=== PATIENT | male | born 1975 | race Caucasian/White ===

== ENCOUNTER 2023-01-23 17:29 | Emergency (ER) | payer OTHER ==
--- NOTE | 2023-01-23 17:36 | ERPHSYRPT ---
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 10 years ago, patient had a myocardial infarction. The symptoms today are different. He has no anterior chest pain and he has no left arm pain today. Patient was feeling fine when he got up and feels fine now but his vague symptoms that were present during his myocardial infarction in the past prompted him to come to the emergency room for further evaluation. Patient has a history of elevated cholesterol, hypertension, type 2 diabetes. He has no cough. He is not short of breath. He has no chest pain. Patient's orthodontic technician assistant is Dr. Celaya out of [facility] in [facility]. Patient is a smoker of cigarettes. 1 pack lasts 2 to 3 days per his report Timing/Duration: today Activities at Onset: none Quality: aching (Between his scapulae. There are no symptoms of chest pain) Severity of Pain-Max: mild Severity of Pain-Current: none Modifying Factors: Improves With: nothing Associated Symptoms: denies symptoms Prior Chest Pain/Cardiac Workup: cardiac cath, heart attack Nitro Today/Relief: no nitro taken today Aspirin Treatment Today: 81 mg x 4, provided by ED Allergies/Adverse Reactions: Sulfa (Sulfonamide Antibiotics) Allergy (Verified 01/23/23 17:30) Home Medications: Atorvastatin Calcium [Lipitor 20MG Tablet] 20 mg PO DAILY 01/23/23 [History] Clopidogrel Bisulfate [PLAVIX Tablet] 75 mg PO DAILY 01/23/23 [History] Empagliflozin [Jardiance] 10 mg PO DAILY 01/23/23 [History] Fenofibrate 40 mg PO DAILY 01/23/23 [History] Lisinopril 10 mg [Zestril 10 MG] 10 mg PO DAILY 01/23/23 [History] Metoprolol Succinate 50 mg [Toprol Xl 50 MG] 50 mg PO DAILY 01/23/23 [History] Sitagliptin Phosphate 50 MG [Januvia 50 MG] 50 mg PO DAILY 01/23/23 [History] Travel Risk - International Travel Have you traveled outside of the country in past 3 weeks: No - Coronavirus Screening Are you exhibiting any of the following symptoms?: No Close contact with a COVID-19 positive Pt in past 14-21 Days: No - Review of Systems Constitutional: No Symptoms Eyes: No Symptoms Ears, Nose, & Throat: No Symptoms Respiratory: No Symptoms Cardiac: No Symptoms Abdominal/Gastrointestinal: No Symptoms Genitourinary Symptoms: No Symptoms Musculoskeletal: No Symptoms Skin: No Symptoms Neurological: No Symptoms Psychological: No Symptoms Endocrine: No Symptoms Hematologic/Lymphatic: No Symptoms Immunological/Allergic: No Symptoms All Other Systems: Reviewed and Negative - Past Medical History Pertinent Past Medical History: Yes Cardiac History: High Cholesterol, Hypertension, Myocardial Infarction ([place]) Endocrine Medical History: Diabetes Type II - Past Surgical History Past Surgical History: Yes Cardiac: Cardiac Catheterization Gastrointestinal: Cholecystectomy Other Surgical History: neck - Social History Drug Use: none - Nursing Vital Signs Nursing Vital Signs: Initial Vital Signs Temperature 97.2 F 01/23/23 17:43 Pulse Rate 76 01/23/23 17:43 Respiratory Rate 18 01/23/23 17:43 Blood Pressure 157/95 01/23/23 17:43 O2 Sat by Pulse Oximetry 97 01/23/23 17:43 Pain Scale Pain Intensity 1 - Physical Exam General Appearance: no apparent distress, alert, thin Eye Exam: PERRL/EOMI, eyes nml inspection Ears, Nose, Throat Exam: normal ENT inspection, moist mucous membranes Neck Exam: normal inspection, non-tender, supple, full range of motion Respiratory Exam: normal breath sounds, lungs clear, airway intact, No chest tenderness, No respiratory distress Cardiovascular Exam: regular rate/rhythm, normal heart sounds, normal peripheral pulses Gastrointestinal/Abdomen Exam: soft, normal bowel sounds, No tenderness Rectal Exam: not done Back Exam: normal inspection, normal range of motion, No CVA tenderness, No vertebral tenderness Extremity Exam: normal inspection, normal range of motion, pelvis stable Neurologic Exam: alert, oriented x 3, cooperative, game developer II-XII nml as tested, normal mood/affect, nml cerebellar function, nml station & gait, sensation nml Skin Exam: normal color, warm, dry Lymphatic Exam: No adenopathy SpO2 Interpretation: normal O2 Delivery: Room Air - Course Nursing assessment & vital signs reviewed: Yes EKG Interpreted by Me: RATE (77), Sinus Rhythm, NORMAL AXIS, LAFB, NORMAL QRS, NORMAL ST-T, Other (No acute ischemic changes on today's twelve-lead EKG. There is borderline prolonged SC interval.) Ordered Tests: Active Orders 24 hr Category Date Time Status EKG-ER Only STAT Care 01/23/23 17:53 Active IV Insertion STAT Care 01/23/23 17:53 Active Pulse Oximetry (ED) STAT Care 01/23/23 17:53 Active CHEST 1 VIEW (PORTABLE) Stat Exams 01/23/23 17:53 Taken CBC W DIFF Stat Lab 01/23/23 18:07 Completed CMP Stat Lab 01/23/23 18:07 Completed D-DIMER QUANTITATIVE Stat Lab 01/23/23 18:07 Completed PROTIME WITH INR Stat Lab 01/23/23 18:07 Completed TROPONIN Q4H Lab 01/23/23 18:07 Completed TROPONIN Q4H Lab 01/23/23 22:00 Ordered TROPONIN Q4H Lab 01/24/23 02:00 Ordered Medication Summary Discontinued Medications Generic Name Dose Route Start Last Admin Trade Name Freq PRN Reason Stop Dose Admin Aspirin 324 mg 01/23/23 17:53 01/23/23 18:12 Aspirin 81 Mg Tab.Chew PO 01/23/23 17:54 324 mg STAT ONE Administration Lab/Rad Data: Laboratory Result Diagrams 01/23/23 18:07 01/23/23 18:07 Laboratory Results 01/23/23 01/23/23 01/23/23 Range/Units 18:07 18:07 18:07 WBC (4.0-10.5) x10^3/uL RBC (4.1-5.6) x10^6/uL Hgb (12.5-18.0) g/dL Hct (42-50) % MCV (78-100) fL MCH (26-32) pg MCHC (32-36) g/dL RDW (11.5-14.0) % Plt Count (150-450) x10^3/uL MPV (7.5-11.0) fL Gran % (36.0-66.0) % Immature Gran % (Auto) (0.00-0.4) % Nucleat RBC Rel Count (0.00-0.1) % Eos # (Auto) (0-0.5) x10^3/uL Immature Gran # (Auto) (0.00-0.03) x10^3u/L Absolute Lymphs (auto) (1.0-4.6) x10^3/uL Absolute Monos (auto) (0.0-1.3) x10^3/uL Absolute Nucleated RBC (0.00-0.01) x10^3u/L Lymphocytes % (24.0-44.0) % Monocytes % (0.0-12.0) % Eosinophils % (0.00-5.0) % Basophils % (0.0-0.4) % Absolute Granulocytes (1.4-6.9) x10^3/uL Basophils # (0-0.4) x10^3/uL PT 10.2 (9.4-12.5) SECONDS INR 0.93 (0.8-3.0) D-Dimer 0.41 (0.0-0.50) mg/L Sodium 139 (137-145) mmol/L Potassium 3.9 (3.5-5.1) mmol/L Chloride 105 (98-107) mmol/L Carbon Dioxide 23 (22-30) mmol/L Anion Gap 15.6 H (5-15) MEQ/L BUN 24 H (9-20) mg/dL Creatinine 0.85 (0.66-1.25) mg/dL Estimated GFR > 60.0 ML/MIN Glucose 182 H (74-106) mg/dL Calcium 9.4 (8.4-10.2) mg/dL Total Bilirubin 0.40 (0.2-1.3) mg/dL AST 24 (17-59) U/L ALT 28 (0-50) U/L Alkaline Phosphatase 103 (38-126) U/L Troponin I < 0.012 (0.000-0.034) ng/mL Serum Total Protein 7.0 (6.3-8.2) g/dL Albumin 4.2 (3.5-5.0) g/dL 01/23/23 Range/Units 18:07 WBC 7.1 (4.0-10.5) x10^3/uL RBC 4.75 (4.1-5.6) x10^6/uL Hgb 13.8 (12.5-18.0) g/dL Hct 41.1 L (42-50) % MCV 86.5 (78-100) fL MCH 29.1 (26-32) pg MCHC 33.6 (32-36) g/dL RDW 12.3 (11.5-14.0) % Plt Count 276 (150-450) x10^3/uL MPV 9.4 (7.5-11.0) fL Gran % 70.0 H (36.0-66.0) % Immature Gran % (Auto) 0.3 (0.00-0.4) % Nucleat RBC Rel Count 0.0 (0.00-0.1) % Eos # (Auto) 0.13 (0-0.5) x10^3/uL Immature Gran # (Auto) 0.02 (0.00-0.03) x10^3u/L Absolute Lymphs (auto) 1.53 (1.0-4.6) x10^3/uL Absolute Monos (auto) 0.41 (0.0-1.3) x10^3/uL Absolute Nucleated RBC 0.00 (0.00-0.01) x10^3u/L Lymphocytes % 21.7 L (24.0-44.0) % Monocytes % 5.8 (0.0-12.0) % Eosinophils % 1.8 (0.00-5.0) % Basophils % 0.4 (0.0-0.4) % Absolute Granulocytes 4.94 (1.4-6.9) x10^3/uL Basophils # 0.03 (0-0.4) x10^3/uL PT (9.4-12.5) SECONDS INR (0.8-3.0) D-Dimer (0.0-0.50) mg/L Sodium (137-145) mmol/L Potassium (3.5-5.1) mmol/L Chloride (98-107) mmol/L Carbon Dioxide (22-30) mmol/L Anion Gap (5-15) MEQ/L BUN (9-20) mg/dL Creatinine (0.66-1.25) mg/dL Estimated GFR ML/MIN Glucose (74-106) mg/dL Calcium (8.4-10.2) mg/dL Total Bilirubin (0.2-1.3) mg/dL AST (17-59) U/L ALT (0-50) U/L Alkaline Phosphatase (38-126) U/L Troponin I (0.000-0.034) ng/mL Serum Total Protein (6.3-8.2) g/dL Albumin (3.5-5.0) g/dL - Progress Progress: improved, re-examined Air Movement: good Progress Note: 01/23/23 19:01 Chest x-ray was interpreted by me. There is no evidence of any acute cardiopulmonary process. This patient's medical issue is 1 of moderate complexity. The level of complexity in the work-up performed is based on review of the patient's past medical history, review of his patient's medication list, review of the patient's drug allergy list, history of present illness and physical findings on examination. Patient arrives with no chest pain and no back pain that he had prior to arrival. Patient is asymptomatic. However we did performed a chest x- ray, twelve-lead EKG, CBC, CMP, D-dimer, troponin. There are no acute or emergent findings on any study result. Patient will be discharged home with instructions to continue his medication as prescribed. We did talk about smoking cessation. He is to follow-up with his orthodontic technician assistant and his primary care physician by phone on 01/25/2023 to make arrangements to be evaluated in 5 to 7 days. Blood Culture(s) Obtained: No Antibiotics given: No Counseled pt/family regarding: lab results, diagnosis, need for follow-up, rad results, smoking cessation Medical Desision Making - Independent Historian Additional History obtained from: Spouse - Diagnostic Testing Diagnostic test were ordered, analyzed, and reviewed by me: Yes Radiological Interpretation: Interpreted by me - Risk of complications Minimal Risk: Minimal risk of morbidity - Departure Departure Disposition: Home Clinical Impression: Back pain Condition: Stable Critical Care Time: No Referrals: SARTHAK IVY MD [Primary Care Provider] - Follow up/PCP as directed Additional Instructions: Continue medication as prescribed. Call your primary care physician and orthodontic technician assistant on 01/25/2023 to make arrangements for follow-up appointment and further evaluation and management.
[2023-01-23] MEDS ORDERED: BABY ASPIRIN 81 MG CHEW PO ONE (17:53)
[2023-01-23 18:10] LABS: Absolute Neutrophil Ct (ANC) 4.94 x10^3/uL (1.4-6.9); BASOPHIL % 0.4 % (0.0-0.4); Basophil (Absolute #) 0.03 x10^3/uL (0-0.4); Eosinophil % 1.8 % (0.00-5.0); Eosinophil (Absolute #) 0.13 x10^3/uL (0-0.5); Hematocrit 41.1 % (42-50); Hemoglobin 13.8 g/dL (12.5-18.0); IMMATURE GRAN # 0.02 x10^3u/L (0.00-0.03); IMMATURE GRAN % 0.3 % (0.00-0.4); Lymphocyte (Absolute #) 1.53 x10^3/uL (1.0-4.6); Lymphocytes % 21.7 % (24.0-44.0); Mean Cell Volume 86.5 fL (78-100); Mean Corpuscular Hemoglobin 29.1 pg (26-32); Mean Corpuscular Hgb Concent. 33.6 g/dL (32-36); Mean Platelet Volume 9.4 fL (7.5-11.0); Monocyte (Absolute #) 0.41 x10^3/uL (0.0-1.3); Monocytes % 5.8 % (0.0-12.0); Platelet Count 276 x10^3/uL (150-450); Red Blood Count 4.75 x10^6/uL (4.1-5.6); Red Cell Distribution Width 12.3 % (11.5-14.0); White Blood Count 7.1 x10^3/uL (4.0-10.5)
[2023-01-23 18:24] LABS: ALBUMIN 4.2 g/dL (3.5-5.0); ALKALINE PHOSPHATASE 103 U/L (38-126); ANION GAP 15.6 MEQ/L (5-15); BLOOD UREA NITROGEN 24 mg/dL (9-20); CHLORIDE 105 mmol/L (98-107); Calcium 9.4 mg/dL (8.4-10.2); Carbon Dioxide 23 mmol/L (22-30); Creatinine 1 0.85 mg/dL (0.66-1.25); EST GLOMERULAR FILTRATION RATE > 60.0 ML/MIN; Glucose 182 mg/dL (74-106); Potassium 3.9 mmol/L (3.5-5.1); SGOT/AST 24 U/L (17-59); SGPT/ALT 28 U/L (0-50); SODIUM 139 mmol/L (137-145)
[2023-01-23 18:25] LABS: D-DIMER QUANTITATIVE 0.41 mg/L (0.0-0.50); INR 0.93 (0.8-3.0); PROTIME 10.2 SECONDS (9.4-12.5)
[2023-01-23 19:15] VITALS: BP 134/85; PULSE 68; O2SAT 96
--- NOTE | 2023-01-23 20:36 | XRAY ---
Indication: Chest and back pain. Comparison: April 04, 2014 Portable chest again demonstrates normal heart and lungs. Bony thorax intact again with old left 6 rib fracture.
== END 2023-01-23 19:23 | disposition home or self-care (01) ==
LOC: ED 17:29
DX: M54.9 Dorsalgia, unspecified (principal); E78.5 Hyperlipidemia, unspecified; I10 Essential (primary) hypertension; E11.9 Type 2 diabetes mellitus without complications; I25.2 Old myocardial infarction; Z72.0 Tobacco use; Z79.899 Other long term (current) drug therapy; Z79.01 Long term (current) use of anticoagulants; Z20.828 Contact with and (suspected) exposure to other viral communicable diseases
CPT/HCPCS: 36000; 36415; 71045; 80053; 84484; 85025; 85379; 85610; 93005; 94760; 99284; A9270-GY